=== PATIENT | female | born 1995 | race Caucasian/White ===

== ENCOUNTER → 2019-11-08 10:09 | Outpatient (CLI) | payer OTHER, SELFPAY ==
[2019-11-08 10:04] VITALS: BMI 22.4
[2019-11-08 11:02] LABS: Absolute Neutrophil Count 5.6 X10^3/uL (2.0-7.7); Basophil# 0.05 X10^3/uL; Basophil% 0.6 % (0-1); Eosinophil# 0.04 X10^3/uL; Eosinophils% 0.5 % (0-5); Hematocrit 41.2 % (37-47); Lymphocyte % 22.3 % (19-41); Mean Corpuscular Volume 94.1 fL (81-99); Mean Platelet Vol. 10.5 fl (6.2-12.0); Monocyte# 0.88 X10^3/uL; Monocyte% 10.3 % (0-10); NRBC Flagged by Analyzer 0 % (0-5); Neutrophil # 5.61 X10^3/uL (2.7-7.7); Neutrophil % 65.9 % (47-70); Platelet Count 236 K/mm3 (150-450); RBC Distribution Width CV 12.4 % (11.6-14.6); RBC Distribution Width SD 42.7 fl (35.1-43.9); Red Blood Count 4.38 M/mm3 (4.2-5.4); White Blood Count 8.5 K/mm3 (4.4-11.0)
[2019-11-08 11:59] LABS: HIV - WCH Non-Reactive (Nonreactive); Hepatitis B Surface Antigen Non-Reactive (Nonreactive); Hepatitis C Antibody Non-Reactive (Nonreactive); Rubella IgG 36.4 IU/mL
[2019-11-08 16:43] LABS: Amphetamine Urine VISTA NEGATIVE (<1000 ng/mL); Barbiturate Urine VISTA NEGATIVE (< 200 ng/mL); Benzodiazepine Urine VISTA NEGATIVE (< 200 ng/mL); Cocaine Urine VISTA NEGATIVE (< 300 ng/mL); Ecstacy Urine VISTA NEGATIVE (< 500 ng/mL); Methadone Urine VISTA NEGATIVE (< 300 ng/mL); PCP Urine VISTA NEGATIVE (< 25 ng/mL); THC Urine VISTA NEGATIVE (< 50 ng/mL); Vista UDS pH Range 6
[2019-11-08 18:59] LABS: Chlamydia Trachomatis by PCR Negative (Negative); Neisserai gonorrhoeae by PCR Negative (Negative); Probe Check PASS; Sample Adequacy Control PASS; Specimen Processing Control PASS
[2019-11-09 02:00] LABS: Rapid Plasmin Reagin (RPR) NONREACTIVE (NONREACTIVE)
[2019-11-13 20:32] LABS: HPV Reflexed? NOT INDICATED
== END ==
PROVIDERS: Referring Provider Obstetrics & Gynecology; Visit Provider Obstetrics & Gynecology
DX: Z34.90 Encounter for supervision of normal pregnancy, unspecified, unspecified trimester (principal); Z12.4 Encounter for screening for malignant neoplasm of cervix
CPT/HCPCS: 36415; 80307; 85025; 86592; 86703; 86762; 86803; 86850; 86900; 86901; 87086; 87088; 87340; 87491; 87591; 88175; G0145

== ENCOUNTER → 2020-01-26 08:09 | Outpatient (CLI) | payer OTHER, SELFPAY ==
[2019-12-08 11:55] VITALS: BMI 22.4
[2020-01-05 10:06] VITALS: BMI 22.4
--- NOTE | 2020-01-26 08:23 | US_ITS ---
STUDY: SECOND AND THIRD TRIMESTER OBSTETRICAL ULTRASOUND REASON FOR EXAM: Female, 24 years old anatomy LMP: 09/07/2019. TECHNIQUE: Transabdominal TECHNICAL QUALITY: Adequate. PRIOR ULTRASOUND: None. FINDINGS: There is a single intrauterine fetus. The fetus is in a cephalic presentation. There is demonstrated cardiac activity with a heart rate of 148 bpm. There is a normal amniotic fluid volume. The largest amniotic fluid pocket measures 4.6 cm x 3.2 cm. The amniotic fluid index (HILARIO) is within normal limits. The placenta is posterior in location and is not low lying. There are Grade 0 placental changes. The cervix measures 6.2 cm in length. The bilateral adnexal regions are normal. BIOMETRY: BPD: 5 cm: 21 weeks, 1 days HC: 17.8 cm: 20 weeks, 1 days AC: 15.3 cm: 20 weeks, 3 days FL: 3.4 cm: 20 weeks, 5 days CI: 85% FL/BPD: 68% FL/HC: FL/AC: 22% HC/AC: 1.16 age by current US: 20 weeks, 2 days. BROOKS by current US: 06/12/2020. Estimated weight: 364 grams, +/- 54 grams, 61.5 %. Age by LMP: 20 weeks, 1 days. BROOKS by LMP: 06/13/2020 ANATOMY: Gender: Female Cranium: Normal lateral ventricles. Normal choroid plexus. Normal cerebellum. Normal cisterna magna. Normal face, nose and lips. Chest: Normal 4-chamber heart. Abdomen/Pelvis: Normal diaphragm. Normal stomach. Normal abdominal wall. Normal cord insertion. Normal 3 vessel cord. Normal kidneys. Normal bladder. Spine: Normal cervical spine. Normal thoracic spine. Normal lumbar spine. Normal sacrum. Extremities: Normal bilateral upper extremities. Normal bilateral lower extremities. US/OB Anatomy Scan IMPRESSION: Single live intrauterine gestation with a mean gestational age of 20 weeks and 2 days. Electronically Signed: Abisai Burt, at 12:43 EDT , Service support ,
== END ==
PROVIDERS: Referring Provider Obstetrics & Gynecology; Visit Provider Obstetrics & Gynecology
DX: Z34.90 Encounter for supervision of normal pregnancy, unspecified, unspecified trimester (principal)
CPT/HCPCS: 76805

== ENCOUNTER → 2020-03-20 09:09 | Outpatient (CLI) | payer OTHER, SELFPAY ==
[2020-03-01 11:16] VITALS: BMI 25.7
[2020-03-20 09:25] LABS: Absolute Lymphocyte Count 1.88 X10^3/uL (0.83-4.51); Absolute Neutrophil Count 10.3 X10^3/uL (2.0-7.7); Basophil# 0.03 X10^3/uL; Basophil% 0.2 % (0-1); Eosinophil# 0.03 X10^3/uL; Eosinophils% 0.2 % (0-5); Hematocrit 35.5 % (37-47); Hemoglobin 11.7 g/dL (12.0-15.0); Lymphocyte # 1.88 X10^3/ul (4.0); Lymphocyte % 14.4 % (19-41); Mean Corpuscular Hgb 32.1 pg (27.0-32.0); Mean Corpuscular Volume 97.5 fL (81-99); Monocyte# 0.72 X10^3/uL; Monocyte% 5.5 % (0-10); NRBC Flagged by Analyzer 0 % (0-5); Neutrophil # 10.32 X10^3/uL (2.7-7.7); Neutrophil % 78.9 % (47-70); Platelet Count 194 K/mm3 (150-450); RBC Distribution Width CV 12.5 % (11.6-14.6); RBC Distribution Width SD 44.5 fl (35.1-43.9); Red Blood Count 3.64 M/mm3 (4.2-5.4); White Blood Count 13.1 K/mm3 (4.4-11.0)
[2020-03-20 09:39] LABS: Glucose Challenge Gest 1H 50g 157 mg/dL (70-140)
== END ==
PROVIDERS: Referring Provider Obstetrics & Gynecology; Visit Provider Obstetrics & Gynecology
DX: Z34.90 Encounter for supervision of normal pregnancy, unspecified, unspecified trimester (principal); Z13.1 Encounter for screening for diabetes mellitus
CPT/HCPCS: 36415; 82950; 85025

== ENCOUNTER → 2020-03-20 10:49 | Outpatient (CLI) | payer OTHER, SELFPAY ==
[2020-03-20 09:39] VITALS: BMI 25.6
--- NOTE | 2020-03-20 10:51 | CT_ITS ---
STUDY: CT ABDOMEN AND PELVIS WITHOUT CONTRAST REASON FOR EXAM: Female, 24 years old. POSSIBLE KIDNEY STONE -- NAUSEA/VOMITING -- 29 WEEKS RADIATION DOSAGE (If Supplied By Facility): CTDIvol = ( 6.67 ) mGy, DLP = ( 299.88 ) mGycm TECHNIQUE: Transaxial images were obtained from the dome of the diaphragm to the symphysis pubis without oral contrast, and without intravenous contrast. Sagittal and coronal images were reconstructed. Individualized dose optimization techniques were used for this CT. COMPARISON: None. FINDINGS: The visualized lung bases are unremarkable. The visualized portions of the heart are within normal limits. Normal liver. Normal gallbladder and extrahepatic biliary system. Normal spleen. Normal pancreas. Normal bilateral adrenal glands. Normal right kidney. Normal left kidney. Normal visualized stomach. Normal small intestine. Normal colon. There is non-visualization of the appendix. Normal abdominal aorta. Normal inferior vena cava. Normal retroperitoneum. Normal urinary bladder. Enlarged gravid uterus. Normal abdominal wall. Normal osseous structures. CT/Abdomen/Pelvis without Cont IMPRESSION: No renal or ureteral stone. Electronically Signed: Deion Preston MD at 11:54 EST Tel , Service support ,
== END ==
PROVIDERS: Referring Provider Obstetrics & Gynecology; Visit Provider Obstetrics & Gynecology
DX: R10.9 Unspecified abdominal pain (principal)
CPT/HCPCS: 74176

== ENCOUNTER → 2020-03-22 09:37 | Outpatient (CLI) | payer OTHER, SELFPAY ==
[2020-03-20 09:39] VITALS: BMI 25.6
[2020-03-22 11:09] LABS: Glucose GTT-Gestation. Fasting 77 mg/dL (<105)
[2020-03-22 11:29] LABS: Glucose GTT-Gestational 1 Hr 155 mg/dL (<190)
[2020-03-22 12:52] LABS: Glucose GTT-Gestational 2 Hr 128 mg/dL (<165)
[2020-03-22 13:15] LABS: Glucose GTT-Gestational 3 Hr 108 L (<145)
== END ==
PROVIDERS: Referring Provider Obstetrics & Gynecology; Visit Provider Obstetrics & Gynecology
DX: O99.810 Abnormal glucose complicating pregnancy (principal); Z3A.00 Weeks of gestation of pregnancy not specified
CPT/HCPCS: 36415; 82951; 82952

== ENCOUNTER → 2020-05-24 | Outpatient (CLI) | payer OTHER, SELFPAY ==
[2020-05-24 09:06] VITALS: BMI 28.5
== END | disposition home or self-care (01) ==
LOC: LABSPEC 16:31
PROVIDERS: Referring Provider Obstetrics & Gynecology; Visit Provider Obstetrics & Gynecology
DX: Z34.90 Encounter for supervision of normal pregnancy, unspecified, unspecified trimester (principal)
CPT/HCPCS: 87081

== ENCOUNTER → 2020-06-07 10:11 | Outpatient (CLI) | payer OTHER, SELFPAY ==
[2020-05-31 09:13] VITALS: BMI 29.5
[2020-06-07 09:14] VITALS: BMI 28.9
== END ==
PROVIDERS: Visit Provider Obstetrics & Gynecology
DX: Z34.90 Encounter for supervision of normal pregnancy, unspecified, unspecified trimester (principal)
CPT/HCPCS: 87635; C9803; U0005; U0003

== ENCOUNTER 2020-06-15 07:02 | Inpatient (IN) | payer OTHER, SELFPAY ==
[2020-06-14 10:03] VITALS: BMI 29.2
[2020-06-15] VITALS (51 sets, daily range): BP systolic 93–137; BP diastolic 46–90; PULSE 60–214; RESP 18; TEMP 29.7–37.3; O2SAT 83–100; BMI 29.9
[2020-06-15 08:06] LABS: Absolute Lymphocyte Count 1.98 X10^3/uL (0.83-4.51); Absolute Neutrophil Count 9.1 X10^3/uL (2.0-7.7); Basophil# 0.03 X10^3/uL; Basophil% 0.2 % (0-1); Eosinophil# 0.04 X10^3/uL; Eosinophils% 0.3 % (0-5); Hematocrit 38.1 % (37-47); Hemoglobin 12.9 g/dL (12.0-15.0); Lymphocyte # 1.98 X10^3/ul (4.0); Lymphocyte % 16.3 % (19-41); Mean Corp Hgb Conc 33.9 g/dL (32-36); Mean Corpuscular Hgb 32.3 pg (27.0-32.0); Mean Corpuscular Volume 95.5 fL (81-99); Mean Platelet Vol. 10.2 fl (6.2-12.0); Monocyte# 0.86 X10^3/uL; Monocyte% 7.1 % (0-10); NRBC Flagged by Analyzer 0 % (0-5); Neutrophil # 9.14 X10^3/uL (2.7-7.7); Neutrophil % 75.4 % (47-70); Platelet Count 165 K/mm3 (150-450); RBC Distribution Width SD 45.8 fl (35.1-43.9); Red Blood Count 3.99 M/mm3 (4.2-5.4); White Blood Count 12.1 K/mm3 (4.4-11.0)
[2020-06-15] MEDS: Oxytocin 30 units/NS 500 ml 30 UNITS/500 ML IV.SOLN IV (08:17)
[2020-06-15] MEDS: Lactated Ringers 1,000 ML 50 ML IV (08:17)
--- NOTE | 2020-06-15 10:20 | HP.PCM_ITS ---
- Problem List (1) Encounter for induction of labor Status: Acute (2) 36 weeks gestation of Status: Acute Comment: electronic test ordered 05/21/20 (scheduled 06/07/20/@ 9:40) NEGATIVE COVID (3) Abnormal glucose affecting Status: Acute Comment: 3 hr GTT normal (4) Influenza vaccine administered Status: Acute Comment: 03/01/2020 (5) Status: Acute Qualifiers: Comment: declines carrier, genetic and NTD. Normal anatomy (6) with nephrolithiasis Status: Acute Qualifiers: Comment: Dx in ER 03/17. Started on abx for UTI as well. CT negative for a dditional stone 03/20 (7) Supervision of normal first Status: Acute Qualifiers: Comment: PRR BROOKS 06/13/2020 girl Spouse: Kike History and Physical Date of Admission: 06/15/20 Intake Vital Signs 06/14/20 Height 5 ft 2 in 06/14/20 Weight: 160 lb 2 oz 06/14/20 BP 116/82 H Intake Visit Reasons: 41WK OB [employer] Crewmember Required: No Is patient in pain?: No Allergies No Known Allergies Allergy (Verified 06/14/20 10:03) Medications diphenhydramine HCl 25 mg capsule 25 mg PO QHS 11/08/19 [History Confirmed 06/14/20] doxylamine succinate 25 mg tablet 25 mg PO QHS PRN 11/08/19 [History Confirmed 06/14/20] vitamin#30 30 mg iron-10 mg iron-folic acid 1 mg-omg3 capsule cap PO 11/08/19 [History Confirmed 06/14/20] promethazine 12.5 mg tablet 12.5 mg PO TID #60 tab 11/08/19 [Rx Confirmed 06/14/20] Last Menstral Period: 09/07/19 Zika: Zika virus screening: Negative : No PFSH PFSH Surgical History S/P wisdom tooth extraction (Acute) Social History (Updated 06/14/20 @ 10:[address] Liseth Ramirez MD) Smoking Status: Never smoker alcohol intake: never substance use type: does not use caffeine: No what type of physical activity do you participate in: walking seatbelt use: always do you feel safe at home: Yes additional social history: Kike- Med surg at [employer] Patient in school for [employer] Pregancy History 1 Elective abortions Hx Para Spontaneous abortions Hx # Term Pregnancies Ectopic pregnancies Hx # Pregnancies Multiple births # of living children HPI 41WK OB : Details: DEBBIE SANDOVAL is a 25 year old who presents for routine OB visit. OB Visit BROOKS Calculator Estimated Delivery Date Method Current WG Current Estimate 06/13/20 LMP (Certain) 40w 1d Other Estimates 06/10/20 Ultrasound #1 40w 4d Expected Delivery Route/Plan Labor Preferences- CB/BF classes: done labor support person: kike labor intervention preferences: no specific pain management options preferred: minimal intervention, IV, hydrotherapy, but open to epidural cut cord/dad catch: [] : [] PP control planned: undecided. doesn't prefer pills. discussed possible routes of delivery and associated risks: discussed possible delivery modalities and possible indications for each including R/B/A of , VAVD, FAVD, and CS. questions answered. special requests: [] Specific Issue/Plans flu vaccine: given 03/01 tdap vaccine: given rhogam: na LARC form signed: declined movement and labor precautions reviewed. Problem list reviewed and updated with the most current plan of care details and appropriate orders placed. Relevant counseling for the gestational age provided. Continue routine care and follow up unless otherwise noted in visit notes/problem list details Initial Weight: 124 lb Date EGA Weight BP Urine Prot Glucose FHR FuHt Pres Dilation Effaced St Visit Note 12/08/19 13w 1d 126 lb 6 oz (+2 lb 6 oz) 100/80 Negative Negative 160 SM- no vb cramping. 01/05/20 17w 1d 131 lb 6 oz (+7 lb 6 oz) 102/60 Negative Negative 145 SM- still some nausea. mild heartburn discussed pepcid and tums PRN. declines additional meds. no vb cramping. scheduled for anatomy us. 02/02/20 21w 1d 139 lb (+15 lb) 96/66 Negative Negative 140 GP - no LOF, VB, DFM, ctx. Gender reveal planned for this weekend. 03/01/20 25w 1d 143 lb 2 oz (+19 lb 2 oz) 100/60 Negative Negative 145 SM- no vb lof good fm no regular ctx 03/20/20 27w 6d 142 lb 6 oz (+18 lb 6 oz) 100/60 Negative Negative 150 27 0 GP - no LOF, VB, DFM, ctx. Seen in ER in [place] this weekend and diagnosed with UTI and kidney stone. Still having pain. CT ordered to evaluate further. Changed from macrobid to keflex. Discussed Pyelo precautions. Oxycodone provided for pain as suspect still has stone. GP - no LOF, VB, DFM, ctx. Seen in ER in [place] this weekend and diagnosed with UTI and kidney stone. Still having pain. CT ordered to evaluate further. Changed from macrobid to keflex. Discussed Pyelo precautions. Oxycodone provided for pain as suspect still has stone. GTT elevated. 3h ordered. 03/28/20 29w 0d 144 lb (+20 lb) 114/66 Negative Negative 145 30 SM- no vb lof good fm no regular ctx 04/12/20 31w 1d 148 lb (+24 lb) 100/60 Negative Negative 140 32 SM- no vb lof good fm no regular ctx 04/26/20 33w 1d 152 lb (+28 lb) 100/72 145 33 SM- no vb lof good fm no reuglar ctx 05/09/20 35w 0d 156 lb 8 oz (+32 lb 8 oz) 104/60 Negative Negative 150 35 GP - no LOF, VB, DFM, ctx. Discussed COVID testing. 05/15/20 35w 6d 155 lb (+31 lb) 112/80 Negative Negative 140 36 GP - no LOF, VB, DFM, ctx. Discussed routes of delivery. 05/24/20 37w 1d 156 lb (+32 lb) 102/74 Negative Negative 140 37 SM- no vb lof good fm no regular ctx gbs done 05/31/20 38w 1d 161 lb 4 oz (+37 lb 4 oz) 108/82 Negative Negative 140 38 Cephalic 2 60 0 SM- no vb lof good fm no r egular ctx 06/07/20 39w 1d 158 lb (+34 lb) 118/82 Negative Negative 140 38 Cephalic 2 70 0 SM- no vb lof good fm nor egualr ctx 06/14/20 40w 1d 160 lb 2 oz (+36 lb 2 oz) 116/82 Negative Negative 150 40 Cephalic 4 80 0 GP - no LOF, VB, DFM, ctx. Pt 4cm. Membranes swept. Scheduled for IOL in am if does not go into labor before then. ACOG First Trimester First Trimester: Desire for , Alcohol, Tobacco Cessation, Illici t/Recreational Drug/Substance Use, Intimate Partner Violence, Barriers to care, Unstable Housing, Communication Barriers, Environmental/Work Hazards, Anticipated Course of Care, Toxoplasmosis Precations, Use of Any medications, Sexual activity, Exercise, Dental Care, Sauna/Hot tub use, Seat Belt use, Childbirth classes/Hospital facilities, , Travel, Indications for US and Screening for Aneuploidy Diagnostics Diagnostics Diagnostics Gest Glucose Tolerance MG/DL 03/22/20 Glucose 1 Hr 50 gm 157 mg/dL (70-140) H 03/20/20 Hgb 11.7 g/dL (12.0-15.0) L 03/20/20 Hct 35.5 % (37-47) L 03/20/20 Details: HIV: Urine Culture: Sequential Screen: NIPT Screen: ROS Const Reports system reviewed and no additional complaints, except as docu Eyes Reports system reviewed and no additional complaints, except as docu ENT Reports system reviewed and no additional complaints, except as docu Card Reports system reviewed and no additional complaints, except as docu Resp Reports system reviewed and no additional complaints, except as docu GI Reports system reviewed and no additional complaints, except as docu Reports system reviewed and no additional complaints, except as docu, Denies abnormal vaginal bleeding, Denies painful urination, Denies pelvic pain, Denies vaginal discharge, Denies vaginal odor, Denies vaginal itching Musc Reports system reviewed and no additional complaints, except as docu Skin/Breast Reports system reviewed and no additional complaints, except as docu Neuro Yes system reviewed and no additional complaints, except as docu Psych Reports system reviewed and no additional complaints, except as docu Endo Reports system reviewed and no additional complaints, except as docu Exam Const General: cooperative, healthy appearing, comfortable, no acute distress, well developed, well groomed Nutritional Appearance: average body habitus, well nourished Orientation: alert, awake, oriented x3 HENMT Head: normal to inspection, normocephalic, atraumatic Eyes Pupils: PERRL, accommodation normal Resp Effort & Inspection: normal respiratory effort, able to speak in complete sentences, symmetric chest movement Cardio Rate: regular rate GI Palpation: soft, no guarding, no masses, nontender Skin General: no rashes or lesions noted, elasticity normal, turgor normal Neuro General: alert, awake, oriented x3 Cranial Nerves: CN's II-XI intact bilaterally, sense of smell intact, PERRL, accommodation normal, EOM intact bilaterally Speech: speech normal Gait: normal gait Psych Appearance: grossly normal, well kempt Mental Status: mental status grossly normal Mood: congruent mood Affect: normal affect Speech and Movement: speech and movement normal Attitude: cooperative Thought Process: normal Thought Content: normal Judgment: judgment good Results POC Urinalysis 2 Dip (Clinic) Office Urine Glucose Negative Last Edit by Elisabet Yarbrough on 06/14/20 10:18 Office Urine Protein Negative Last Edit by Elisabet Yarbrough on 06/14/20 10:18 Assessment & Plan Problems 1. 36 weeks gestation of Z3A.36 electronic test ordered 05/21/20 (scheduled 06/07/20/@ 9:40) NEGATIVE COVID 2. Influenza vaccine administered Z23 03/01/2020 3. with nephrolithiasis in third trimester O26.833; N20.0 Dx in ER 03/17. Started on abx for UTI as well. CT negative for additional stone 03/20 4. Abnormal glucose affecting O99.810 3 hr GTT normal 5. 40 weeks gestation of Z3A.40 declines carrier, genetic and NTD. Normal anatomy 6. Encounter for supervision of normal first in third trimester Z34.03 PRR BROOKS 06/13/2020 girl Spouse: Kike Patient presents IOL, plan management for with pitocin/AROM. Pain management: desires natural labor GBS negative. Management of any complications: none I have reviewed the [facility] and made any clinically relevant updates.
[2020-06-15] MEDS: Lactated Ringers 500 ML 999 ML IV (10:28)
[2020-06-15] MEDS: Ondansetron 4 MG/2 ML Vial IV (10:31)
[2020-06-15] MEDS: fentaNYL-bupivacaine (epidural) 100 ML BAG EPIDURAL (11:38)
[2020-06-15] MEDS: Oxytocin 30 units/NS 500 ml 30 UNITS/500 ML IV.SOLN 334 UNITS IV (14:28)
--- NOTE | 2020-06-15 14:45 | PCM.OPRPT ---
Problem List (1) Encounter for induction of labor Status: Acute (2) 36 weeks gestation of Status: Acute Comment: electronic test ordered 05/21/20 (scheduled 06/07/20/@ 9:40) NEGATIVE COVID (3) Abnormal glucose affecting Status: Acute Comment: 3 hr GTT normal (4) Influenza vaccine administered Status: Acute Comment: 03/01/2020 (5) Status: Acute Qualifiers: Comment: declines carrier, genetic and NTD. Normal anatomy (6) with nephrolithiasis Status: Acute Qualifiers: Comment: Dx in ER 03/17. Started on abx for UTI as well. CT negative for additional stone 03/20 (7) Supervision of normal first Status: Acute Qualifiers: Comment: PRR BROOKS 06/13/2020 girl Spouse: Kike Vaginal Delivery Maternal Presentation: Elective Induction 25-year-old G1, P0 at 40 weeks gestation admitted for induction of labor for term favorable cervix. Patient was induced with Pitocin and AROM. Patient made rapid cervical change from 5 cm to complete dilation within 4 hours of her water being broken. Method of Induction: Pitocin, Amniotomy Amniotic Membrane Rupture Type: Artificial Amniotic Fluid Description: Clear Final BROOKS: 06/13/20 Gestational age: 40 Weeks and 2 Days Date of Procedure: 06/15/20 Pre-Operative Diagnosis: Term , induction of labor for term favorable cervix Post-Operative Diagnosis: Same Surgery/ Procedure Performed: Spontaneous Vaginal Delivery Type of Anesthesia: Epidural Description of Procedure: Patient began pushing and delivered the head in the LIANNA presentation. The head was delivered atraumatically and no nuchal cord was noted. The anterior and posterior shoulders delivered without complication followed by the rest of the and the infant was placed on the maternal abdomen. Delayed cord clamping was employed for approximately 60 seconds. Cord was clamped and cut and gentle traction was applied to the cord and the placenta delivered spontaneously immediately following it was noted to be intact with three-vessel cord. The perineum and vagina were inspected and midline second-degree laceration was noted using 3-0 Vicryl Rapide suture. EBL was 200 cc. Patient and infant tolerated delivery well. Presentation: Vertex, LIANNA Placental Delivery Description: Spontaneous Placenta Disposition: [facility] Cord Vessel Description: 3 Vessels Cord Entanglement: None Estimated Blood Loss: 200 cc Infant A gender: Female Episiotomy Description: None Laceration: Midline, Perineal Extension/lac, 2nd degree Medications given after delivery: IV Pitocin Complications: None Multi Select Codes - Urinary/Genital Urinary/Genital CPT Codes: 93055 Vaginal Delivery [facility]
--- NOTE | 2020-06-15 14:50 | DCINST_ITS ---
Discharge Diet: No Restrictions Discharge Activity: Return to Normal Activity, May not drive while taking narcotic pain medications., May Shower May resume sexual activity in: 4-6 weeks Additional Activity Instructions:: Nothing in the vagina for 4-6 weeks. You may return to work/school in 6 weeks. Call your doctor if your incision/area has: Continuous Slow Oozing, Sudden Increased Bleeding, Increased Pain/ Swelling, Increased Redness, Foul Smelling Discharge Additional Instructions: If you experience any of the following, contact your healthcare provider. * Bleeding that soaks a pad every hour for 2 hours * Fever 100.4 or higher * Unrelieved incision or abdominal pain * Swelling, redness, discharge or bleeding from your incision or episiotomy site * Your incision begins to separate * Problems urinating (including inability to urinate or burning while urinating). * Visual changes * Severe headache * Flu-like symptoms * Pain or redness in one of both of your breasts * Pain, warmth, tenderness or swelling in your legs, especially the calf area * Frequent nausea and vomiting * Symptoms of depression or anxiety If you experience any of the following, call 911 or go to the nearest Emergency Room. * Chest pain * Problems breathing * Seizure activity * Partial or complete paralysis of a body part, slurred speech, weakness or drooping of the face, or a sudden inability to walk or hold your balance Allergies/Adverse Reactions: Allergies No Known Allergies Allergy (Verified 06/15/20 07:45) Medications to take at Discharge vitamin#30 30 mg iron-10 mg iron-folic acid 1 mg-omg3 capsule 1 cap PO DAILY 11/08/19 When: Call to make an appointment with your doctor in 6 weeks. If you had elevated Blood Pressure or 4th degree laceration you will need to be seen in 2 weeks. Primary Care Physician: Care Physician,No Primary [Primary Care Provider] - Test Results: Test results from this visit will be discussed in further detail at your follow- up appointment, if applicable.
[2020-06-15] MEDS: Ibuprofen 600 MG Tablet PO (15:40)
[2020-06-15] MEDS: Acetaminophen 500 MG Tablet 1000 MG PO (21:11)
[2020-06-16 01:00] VITALS: BP 97/66; PULSE 70; RESP 18; TEMP 36.4
[2020-06-16 04:06] VITALS: BP 96/63; PULSE 64; RESP 16; TEMP 36.4
[2020-06-16] MEDS: Ibuprofen 600 MG Tablet PO ×2 (04:14→12:45)
--- NOTE | 2020-06-16 06:54 | PCM.PN.OB ---
Patient Problems: Active and Suspected Problems (Last Reviewed 06/14/20 @ 10:04 by Elisabet Yarbrough) Encounter for induction of labor (Acute) 36 weeks gestation of (Acute) electronic test ordered 05/21/20 (scheduled 06/07/20/@ 9:40) NEGATIVE COVID Influenza vaccine administered (Acute) 03/01/2020 with nephrolithiasis (Acute) Dx in ER 03/17. Started on abx for UTI as well. CT negative for additional stone 03/20 Abnormal glucose affecting (Acute) 3 hr GTT normal (Acute) declines carrier, genetic and NTD. Normal anatomy Supervision of normal first (Acute) PRR BROOKS 06/13/2020 girl Spouse: Kike Subjective: Patient doing well without complaints. Tolerating PO. Ambulating and voiding without difficulty. feeding well. Denies chest pain, shortness of breath, calf pain/swelling, fevers, chills, lightheadedness. - Physical Exam Vitals/I&O's: Vital Signs Temp Pulse Resp BP Pulse Ox 97.6 F L 64 16 96/63 97 06/16/20 04:06 06/16/20 04:06 06/16/20 04:06 06/16/20 04:06 06/15/20 16:29 Oxygen Delivery Method Room Air Weight: 163 lb 9.328 oz Body Mass Index (BMI) 29.9 Intake and Output for Last 24 Hours 06/14/20 06/15/20 06/16/20 23:59 23:59 23:59 Intake Total 2518.13 / 2518.13 Output Total 1100 / 1100 Balance 1418.13 / 1418.13 General: Alert, Oriented x3 Laboratory Results 06/15/20 07:45: WBC 12.1 H, RBC 3.99 L, Hgb 12.9, Hct 38.1, MCV 95.5, MCH 32.3 H, MCHC 33.9, RDW Std Deviation 45.8 H, RDW Coeff of Haritha 13.0, Plt Count 165, MPV 10.2, Immature Gran % (Auto) 0.700, Neut % (Auto) 75.4 H, Lymph % (Auto) 16.3 L, [place] % (Auto) 7.1, Eos % (Auto) 0.3, Baso % (Auto) 0.2, Absolute Neuts (auto) 9.1 H, Absolute Lymphs (auto) 1.98, Nucleated RBC % 0 06/15/20 07:45: Blood Type O POSITIVE, Antibody Screen NEGATIVE Current Medications Acetaminophen (Acetaminophen 500 Mg Tablet) 1,000 mg PO Q8H PRN PRN PRN Reason: Pain Score 1-3 Last Admin: 06/15/20 21:11 Dose: 1,000 mg Documented by: Bisacodyl (Bisacodyl 10 Mg Suppository) 10 mg RECTAL UD PRN PRN Reason: If no BM Dibucaine (Dibucaine 30 Gm Tube) 1 applic TOPICAL TID PRN PRN; Protocol PRN Reason: Discomfort Hydrocortisone (Hydrocortisone 2.5% Crm) 1 applic TOPICAL TID PRN PRN; Protocol PRN Reason: Discomfort Ibuprofen (Ibuprofen 600 Mg Tablet) 600 mg PO Q6H PRN PRN PRN Reason: Pain Score 1-3 Last Admin: 06/16/20 04:14 Dose: 600 mg Documented by: Methylergonovine Maleate (Methylergonovine 0.2 Mg/Ml Ampul) 0.2 mg IM X1 PRN PRN Reason: Excess bleeding/uterine atony Ondansetron HCl (Ondansetron 4 Mg/2 Ml Vial) 4 mg IV Q4H PRN PRN PRN Reason: Nausea Oxycodone HCl (Oxycodone 5 Mg Tablet) 5 - 10 mg PO Q4H PRN PRN PRN Reason: Pain Score 4-10 Senna/Docusate Sodium (Senna/Docusate Sodium 1 Tablet) 1 - 2 tablet PO DAILY PRN PRN PRN Reason: Constipation Simethicone (Simethicone 80 Mg Tablet) 80 mg PO PCHS PRN PRN Reason: Indigestion/Stomach pain Sodium Chloride (0.9% Saline Lock 10 Ml Syringe) 5 - 15 ml IV UD PRN PRN Reason: SALINE FLUSH Medical Necessity - Tobacco Use Smoking Status: Never smoker Assessment/Plan All Active Problems (Last Reviewed 06/14/20 @ 10:04 by Elisabet Yarbrough) Encounter for induction of labor (Acute) 36 weeks gestation of (Acute) Influenza vaccine administered (Acute) with nephrolithiasis (Acute) Abnormal glucose affecting (Acute) (Acute) Supervision of normal first (Acute) s/p PPD # 1 1. routine post delivery care 2. breast feeding- support given 3. rh positive 4. rubella immune
[2020-06-16 07:36] VITALS: BP 111/64; PULSE 69; RESP 16; TEMP 36.8; O2SAT 97
[2020-06-16] MEDS: Acetaminophen 500 MG Tablet 1000 MG PO ×2 (07:42→15:18)
[2020-06-16 12:47] VITALS: BP 112/63; PULSE 66; RESP 16; TEMP 36.6; O2SAT 98
[2020-06-16] MEDS: Dibucaine 30 GM Tube 1 APPLIC TOPICAL (15:20)
== END 2020-06-16 16:05 | disposition home or self-care (01) | DRG 807 ==
PROVIDERS: Admitting Provider Obstetrics & Gynecology; Visit Provider Obstetrics & Gynecology
DX: O99.814 Abnormal glucose complicating childbirth (principal); Z37.0 Single live birth; O70.1 Second degree perineal laceration during delivery; Z3A.40 40 weeks gestation of pregnancy; O62.3 Precipitate labor
CPT/HCPCS: 59025; 59050; 85025; 86850; 86900; 86901; 99218; J7120; G0378; J2405

== ENCOUNTER → 2020-07-05 | Outpatient (CLI) | payer OTHER, SELFPAY ==
[2020-07-05 13:47] VITALS: BMI 25.1
== END | disposition home or self-care (01) ==
LOC: LABSPEC 16:43
PROVIDERS: Referring Provider Obstetrics & Gynecology; Visit Provider Obstetrics & Gynecology
DX: R10.2 Pelvic and perineal pain (principal)
CPT/HCPCS: 87070; 87086; 87088; 87205